=== PATIENT | female | born 2000 | race Caucasian/White ===

== ENCOUNTER 2023-03-17 11:00 | Outpatient (RCR) | payer OTHER, SELFPAY ==
[2023-03-17 12:17] LABS: Basophils Percent Auto 0.1 % (0.2-1.2); Eosinophils Absolute Auto 0.1 K/mm3 (0-0.3); Eosinophils Percent Auto 0.4 % (0-4.4); Hematocrit 32.7 % (37.0-47.0); Hemoglobin 10.1 g/dL (12.0-15.0); Immature Granulocyte Absolute 0.09 K/mm3 (0.00-0.031); Immature Granulocyte Percent A 0.7 % (0-0.5); Lymphocytes Absolute Auto 1.34 K/mm3 (0.9-3.2); Mean Corpuscular HGB Conc 30.9 g/dl (32-36); Mean Corpuscular Hemoglobin 25.1 pg (26-34); Mean Corpuscular Volume 81.3 fl (80-100); Mean Platelet Volume 10.6 fl (7.4-10.4); Monocytes Absolute Auto 0.5 K/mm3 (0.1-0.6); Monocytes Percent Auto 3.7 % (2.6-8.5); Neutrophils Absolute Auto 11.4 K/mm3 (1.3-6.7); Neutrophils Percent Auto 85.1 % (45.5-73.1); Platelet Count Result 361 k/mm3 (150-375); Red Blood Count 4.02 M/mm3 (4.2-5.4); Red Cell Distribution Width 14.4 % (11.5-14.5); White Blood Count 13.5 K/mm3 (4.5-10.0)
[2023-03-17 12:27] LABS: Glucose 1 Hour PP 50gm Dose 157 mg/dL
[2023-03-17 13:08] LABS: HIV 1/2 Ab P24 Ag Result Negative (Negative)
[2023-03-18] MEDS: RHO(D) IMMUNE GLOBULIN 300 MCG/2 ML SYRINGE IM (14:20)
== END 2023-06-15 23:59 | disposition home or self-care (01) ==
LOC: ANHLAB 11:00
PROVIDERS: PCP Family Medicine; Visit Provider Obstetrics & Gynecology
DX: Z11.4 Encounter for screening for human immunodeficiency virus [HIV] (principal); Z29.13 Encounter for prophylactic Rho(D) immune globulin; O36.0190 Maternal care for anti-D [Rh] antibodies, unspecified trimester, not applicable or unspecified; Z3A.00 Weeks of gestation of pregnancy not specified
CPT/HCPCS: 36415; 82947; 85025; 85461; 86703; 86850; 86900; 86901; 90384; 96372; G0432; J2790

== ENCOUNTER 2023-05-12 17:17 | Observation (INO) | payer OTHER, SELFPAY ==
[2023-05-12] VITALS (9 sets, daily range): BP systolic 130–149; BP diastolic 80–94; PULSE 64–82; BMI 33.6
--- NOTE | ~2023-05-12 | US_ITS ---
EXAMINATION: US OB limited DATE: 05/12/2023 18:36 INDICATION: Placental evaluation during third trimester , abdominal trauma TECHNIQUE: Real-time ultrasound of the pelvis was performed. The interpreting radiologist was not pre sent for the study. COMPARISON: None. FINDINGS: There is a single living fetus in vertex presentation. The placenta is to the maternal righ t, 7.9 cm from the internal cervical os, and normal in appearance. cardiac activity and m ovement are noted. heart rate is 129 beats per minute (bpm). The amniotic fluid index is 5.8 cm which is low (normal range: 7.5 cm to 24.4 cm). IMPRESSION: 1. Single living fetus in vertex presentation. 2. Grossly normal placenta without evidence of previa or abruption. However, acute hemorrhage can be isoechoic to the placenta. Recommend continued clinical followup. 3. Oligohydramnios. Reviewed, dictated and finalized at location F. IMPRESSION: 1. Single living fetus in vertex presentation. 2. Grossly normal placenta without evidence of previa or abruption. However, a cute hemorrhage can be isoechoic to the placenta. Recommend continued clinical followup. 3. Oligohydramnios.
--- NOTE | 2023-05-12 17:40 | OBADM ---
This patient, Lalitha Rae, admitted to the OB room OB Post 112 for observation. Patient/family oriented to hospital policies and general routines including ID bracelet, bed and alarms, visiting hours, pain management, procedures, bathroom and other care routines, personal items, smoking policy, room service/diet, and visiting hours. Patient/Family are encouraged to report perceived risks to care and to ask questions if they do not understand what they are told or what they should do.
--- NOTE | 2023-05-19 09:33 | PM.OBTRLD ---
OB - Triage/Final Diagnosis Visit Information Comments/Additional reasons for admission: I have assessed the risk for this patient, Lalitha Rae, and determined that she would benefit from observation care. Evaluation Laboratory results: Laboratory Tests 05/12/23 18:01 Blood Type A Negative Antibody Screen Positive Antibody Identification Passive Due to RH Imm Glob Antigen Identification TNP EVIN, IgG Interpret Not Performed EVIN, Poly Interpret Negative EVIN, Complement Interp Not Performed Screen Negative Baby's Blood Type Not Reportable Baby's EVIN Not Reportable KB Hemoglobin Negative Doses of RhIg Required 1 Final Diagnosis (1) Status post fall: Code(s): Z91.81 - History of falling Status: Acute
== END 2023-05-12 21:26 | disposition home or self-care (01) ==
PROVIDERS: Admitting Provider Obstetrics & Gynecology; PCP Family Medicine; Visit Provider Obstetrics & Gynecology
DX: Z04.3 Encounter for examination and observation following other accident (principal)
CPT/HCPCS: 36415; 76815; 85460; 85461; 86850; 86880; 86900; 86901; 86902; G0378; G0379

== ENCOUNTER 2023-05-13 15:35 | Outpatient (RCR) | payer OTHER, SELFPAY ==
[2023-04-06 14:46] VITALS: BP 123/75; PULSE 92
[2023-04-06 16:34] VITALS: BP 123/75; PULSE 116
[2023-04-09 08:33] VITALS: BP 127/76; PULSE 78
[2023-04-13 14:11] VITALS: BP 123/73; PULSE 80
[2023-04-16 09:12] VITALS: BP 120/72; PULSE 75
[2023-04-20 15:26] VITALS: BP 118/78; PULSE 75
[2023-04-23 09:09] VITALS: BP 128/87; PULSE 79
[2023-04-27 15:05] VITALS: BP 119/76; PULSE 70
[2023-04-30 09:01] VITALS: BP 121/73; PULSE 85
[2023-05-04 11:31] VITALS: BP 140/81; PULSE 68
[2023-05-04 11:46] VITALS: BP 137/87; PULSE 78
[2023-05-04 12:10] VITALS: BP 137/87; PULSE 78
[2023-05-11 12:15] VITALS: BP 128/86; PULSE 77
--- NOTE | ~2023-05-13 | US_ITS ---
EXAMINATION: US OB BPP wo non-stress DATE: 05/04/2023 12:39 INDICATION: Intrauterine growth retardation TECHNIQUE: Real-time pelvic ultrasound was performed. The interpreting radiologist was not present fo r the study. COMPARISON: 04/27/2023 FINDINGS: There is a single living fetus in vertex presentation. The placenta is anterior. heart rate is 135 beats per minute (bpm). Biophysical profile performed by the technologist: breathing (30 sec sustained breathing in 30 minutes): 2 out of 2 movement (3 gross body movements in 30 minutes): 2 out of 2 tone (one episode of wpnsyix-tdkvulhbi-zyxionk limb movement): 2 out of 2 Amniotic fluid pocket (2 cm): 2 out of 2 Total score: 8 out of 8 IMPRESSION: 1. Single living fetus in vertex presentation with heart rate of 135 bpm. 2. Biophysical profile 8 out of 8. Reviewed, dictated and finalized at location A.
--- NOTE | ~2023-05-13 | US_ITS ---
EXAMINATION: US OB BPP wo non-stress DATE: 04/20/2023 15:49 INDICATION: Gestational diabetes, third trimester TECHNIQUE: Real-time pelvic ultrasound was performed. The interpreting radiologist was not present fo r the study. COMPARISON: None. FINDINGS: There is a single living fetus in vertex presentation. The placenta is anterior. heart rate is 157 beats per minute (bpm). The amniotic fluid index is 10.3 cm which is normal (normal range: 8.1 cm to 24.8 cm). The cervical length measures 3.3 cm. Biophysical profile performed by the technologist: breathing (30 sec sustained breathing in 30 minutes): 2 out of 2 movement (3 gross body movements in 30 minutes): 2 out of 2 tone (one episode of hugrmbz-lbkqtslvq-gdvvera limb movement): 2 out of 2 Amniotic fluid pocket (2 cm): 2 out of 2 Total score: 8 out of 8 IMPRESSION: 1. Single living fetus in vertex presentation. 2. Biophysical profile 8 out of 8. Reviewed, dictated and finalized at location B.
--- NOTE | ~2023-05-13 | US_ITS ---
EXAMINATION: US OB follow up w BPP DATE: 04/27/2023 15:04 INDICATION: Evaluate EFW and growth percentage, evaluate BPP. Hypertension, DPM. TECHNIQUE: Real-time ultrasound of the pelvis was performed. COMPARISON: 04/20/2023, 04/06/2023. FINDINGS: There is a single living fetus in vertex presentation, longitudinal lie. The placenta is anterior. F etal heart rate is 136 bpm. The amniotic fluid index is 10.4 cm, which is normal (5th to 95th percent ile is 8.3 to 24.5 cm). The following biometric data were obtained: Biparietal diameter (BPD): 8.15 cm; head circumference (HC): 29.21 cm; abdominal circumference (AC): 30.25 cm; femur length (FL): 6.65 cm. These measurements are concordant. Estimated weight is 2293 g +/- 344.01 g, which correlates with the 10.9 percentile when 05/28/20 is used as estimated date of delivery. As single measurements, these parameters are each equal to the following estimated gestational ages w ith ranges of +/- 2 standard deviations: BPD: 32 weeks 5 days +/- 3 weeks 1 days. HC: 32 weeks 1 days +/- 3 weeks 0 days. AC: 34 weeks 1 days +/- 3 weeks 0 days. FL: 34 weeks 2 days +/- 3 weeks 0 days. estimated gestational age based solely on measurements from this exam is 33 weeks 2 days +/- 2 weeks 2 days. Biophysical profile performed by the technologist: breathing (30 sec sustained breathing in 30 minutes): 2 out of 2. movement (3 gross body movements in 30 minutes: 2 out of 2. tone (one episode of ikzzjco-vhpnuhqow-ncravvw limb movement): 2 out of 2. Amniotic fluid pocket (2 cm): 2 out of 2. Total score: 8 out of 8. IMPRESSION: Single living fetus in vertex presentation. Biophysical profile 8 out of 8. EFW 2293 g, corresponding to the 10.9th percentile when 05/28/2023 is used as the estimated date of de livery. Reviewed, dictated and finalized at location K. IMPRESSION: Single living fetus in vertex presentation. Biophysical profile 8 out of 8. EFW 2293 g, corresponding to the 10.9th percentile when 05/28/2023 is used as th e estimated date of delivery.
--- NOTE | ~2023-05-13 | US_ITS ---
EXAMINATION: US OB limited DATE: 05/13/2023 16:53 INDICATION: Amniotic fluid index assessment during third trimester TECHNIQUE: Real-time ultrasound of the pelvis was performed. The interpreting radiologist was not pre sent for the study. COMPARISON: 05/12/2023 FINDINGS: There is a single living fetus in vertex presentation. The placenta is anterior. card iac activity and movement are noted. heart rate is 148 beats per minute (bpm). The amniot ic fluid index is 4.6 cm which is low (normal range: 7.5 cm to 24.4 cm) . IMPRESSION: 1. Single living fetus in vertex presentation. 2. Persistent oligohydramnios. Reviewed, dictated and finalized at location F.
--- NOTE | ~2023-05-13 | US_ITS ---
EXAMINATION: US OB follow up w BPP DATE: 04/06/2023 15:23 INDICATION: Biophysical profile and growth assessment during third trimester TECHNIQUE: Real-time pelvic ultrasound was performed. The interpreting radiologist was not present fo r the study. COMPARISON: None. FINDINGS: There is a single living fetus in vertex presentation. The placenta is anterior. heart rate is 137 beats per minute (bpm). Biophysical profile performed by the technologist: breathing (30 sec sustained breathing in 30 minutes): 2 out of 2 movement (3 gross body movements in 30 minutes): 2 out of 2 tone (one episode of eoeqvpq-hzkxtoica-pblcflp limb movement): 2 out of 2 Amniotic fluid pocket (2 cm): 2 out of 2 Total score: 8 out of 8 The following biometric data were obtained: Biparietal diameter (BPD): 7.7 cm; head circumference (HC): 28.9 cm; abdominal circumference (AC): 27 .1 cm; femur length (FL): 6.3 cm. These measurements are concordant. Estimated weight is 1804 g +/- 270 g, which correlates with the 15th percentile when 05/18/2023 i s used as estimated date of delivery. As single measurements, these parameters are each equal to the following estimated gestational ages w ith ranges of +/- 2 standard deviations: BPD: 30 weeks 5 days +/- 3 weeks 1 days. HC: 31 weeks 6 days +/- 3 weeks 0 days. AC: 31 weeks 1 days +/- 3 weeks 0 days. FL: 32 weeks 4 days +/- 3 weeks 0 days. estimated gestational age based solely on measurements from this exam is 31 weeks 4 days +/- 2 weeks 1 days. IMPRESSION: 1. Single living fetus in vertex presentation. 2. Biophysical profile 8 out of 8. 3. Estimated weight is 1804 g +/- 270 g, which correlates with the 15th percentile when 3 is used as estimated date of delivery. Reviewed, dictated and finalized at location [] IMPRESSION: 1. Single living fetus in vertex presentation. 2. Biophysical profile 8 out of 8. 3. Estimated weight is 1804 g +/- 270 g, which correlates with the 15th p ercentile when 05/18/2023 is used as estimated date of delivery.
--- NOTE | ~2023-05-13 | US_ITS ---
EXAMINATION: US OB BPP wo non-stress DATE: 05/11/2023 12:09 INDICATION: Chronic hypertension. Gestational diabetes. Third trimester. TECHNIQUE: Real-time pelvic ultrasound was performed. COMPARISON: Ultrasound 05/04/2023 FINDINGS: There is a single living fetus in vertex presentation. The placenta is anterior. heart rate is 125 beats per minute (bpm). The amniotic fluid volume is subjectively . Biophysical profile performed by the technologist: breathing (30 sec sustained breathing in 30 minutes): 2 out of 2 movement (3 gross body movements in 30 minutes): 2 out of 2 tone (one episode of blsjmsa-qvhvdnbej-nlfpbhz limb movement): 2 out of 2 Amniotic fluid pocket (2 cm): 2 out of 2 Total score: 8 out of 8 IMPRESSION: 1. Single living fetus in vertex presentation. 2. Biophysical profile 8 out of 8. Reviewed, dictated and finalized at location B.
--- NOTE | ~2023-05-13 | US_ITS ---
EXAMINATION: US OB BPP wo non-stress DATE: 04/13/2023 14:07 INDICATION: Third trimester with maternal gestational diabetes. Assess biophysical profile. TECHNIQUE: Real-time pelvic ultrasound was performed. The interpreting radiologist was not present fo r the study. COMPARISON: None. FINDINGS: There is a single living fetus in vertex presentation. The placenta is anterior. heart rate is 132 beats per minute (bpm). Biophysical profile performed by the technologist: breathing (30 sec sustained breathing in 30 minutes): 2 out of 2 movement (3 gross body movements in 30 minutes): 2 out of 2 tone (one episode of cvtvqhp-ehexxgbjw-yylqvaj limb movement): 2 out of 2 Amniotic fluid pocket (2 cm): 2 out of 2 Total score: 8 out of 8 IMPRESSION: 1. Single living fetus in vertex presentation with heart rate of 132 bpm. 2. Biophysical profile 8 out of 8. Reviewed, dictated and finalized at location B.
== END 2023-05-13 17:30 | disposition short-term general hospital (02) ==
LOC: ANHOBOP 15:35
PROVIDERS: PCP Family Medicine; Visit Provider Obstetrics & Gynecology
DX: O24.419 Gestational diabetes mellitus in pregnancy, unspecified control (principal); Z3A.32 32 weeks gestation of pregnancy
CPT/HCPCS: 59025; 76815; 76816; 76819

== ENCOUNTER 2023-05-13 15:35 | Inpatient (IN) | payer OTHER, SELFPAY ==
[2023-05-13] VITALS (18 sets, daily range): BP systolic 107–162; BP diastolic 57–106; PULSE 62–96; TEMP 36.9; BMI 33.6
--- NOTE | 2023-05-13 18:21 | WPDANESEPP ---
Anes - Eval Pre Procedure Procedure: labor epidural Date/Time: 05/13/23 18:21 Pre Op Diagnosis: Induction of Labor Patient Data Age: 22 Gender: F Height: Weight: Last Vital Signs Pulse 84 05/13/23 18:16 BP 132/86 05/13/23 18:16 Allergies Allergy/AdvReac Type Severity Reaction Status Date / Time No Known Allergies Allergy Verified 05/04/23 13:45 Home Medications Medication Instructions Recorded Confirmed Type vitamin-ferrous fumarate 1 cap PO DAILY 11/16/22 05/12/23 History 65 mg iron-folic acid 1 mg capsule aspirin 81 mg tablet,delayed 81 mg PO DAILY 12/01/22 05/12/23 History release (Adult Low Dose Aspirin) labetalol 100 mg tablet 100 mg PO Q12H #60 tabs 01/13/23 05/12/23 Rx ferrous sulfate 324 mg (65 mg 324 mg PO DAILY 04/06/23 05/12/23 History iron) tablet,delayed release Patient hx anesthesia problems: none Family hx anesthesia problems: none Results Review: All pre-operative results and documents have been reviewed as part of the pre-operative evaluation. [facility] Past Medical History Medical History Abnormal glucose tolerance in Allergies Anxiety Gestational diabetes Family History Family History Grandparent Diabetes mellitus Mother Diabetes mellitus Thyroid disorder Hypertension Sibling Depression Thyroid disorder Social History Social History Smoking status: Never smoker Tobacco type: e-cigarettes/vaping Smoking end date: 10/10/20 Additional smoking assessment comments: stopped vaping 1-2 months ago Alcohol intake: former Drinks per week: 3 Alcohol use details: Beer, wine, etc. 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
[2023-05-13 19:15] LABS: Basophils Percent Auto 0.3 % (0.2-1.2); Eosinophils Absolute Auto 0.1 K/mm3 (0-0.3); Eosinophils Percent Auto 0.5 % (0-4.4); Hematocrit 37.1 % (37.0-47.0); Hemoglobin 11.8 g/dL (12.0-15.0); Immature Granulocyte Absolute 0.07 K/mm3 (0.00-0.031); Immature Granulocyte Percent A 0.5 % (0-0.5); Lymphocytes Absolute Auto 2.01 K/mm3 (0.9-3.2); Lymphocytes Percent Auto 13.9 % (18.3-44.2); Mean Corpuscular HGB Conc 31.8 g/dl (32-36); Mean Corpuscular Hemoglobin 25.6 pg (26-34); Mean Corpuscular Volume 80.5 fl (80-100); Mean Platelet Volume 12.8 fl (7.4-10.4); Monocytes Absolute Auto 1.1 K/mm3 (0.1-0.6); Monocytes Percent Auto 7.5 % (2.6-8.5); Neutrophils Absolute Auto 11.2 K/mm3 (1.3-6.7); Neutrophils Percent Auto 77.3 % (45.5-73.1); Platelet Count Result 272 k/mm3 (150-375); Red Blood Count 4.61 M/mm3 (4.2-5.4); Red Cell Distribution Width 16.7 % (11.5-14.5); White Blood Count 14.5 K/mm3 (4.5-10.0)
[2023-05-13] MEDS: LABETALOL HCL 100 MG TABLET PO (19:25)
[2023-05-13 19:28] LABS: Atypical Lymphocytes Present; Hypochromasia 1+ (NORMAL); Platelet Estimate Adequate (Adequate); Schistocytes None Seen (NORMAL)
[2023-05-13 19:37] LABS: Alanine Aminotransferase 17 U/L (6-35); Albumin Level 3.8 g/dL (3.5-5.1); Alkaline Phosphatase 103 U/L (38-126); Anion Gap 5 mmol/L (8-16); Aspartate Amino Transferase 27 U/L (14-36); Bilirubin,Total 0.5 mg/dL (0.2-1.3); Blood Urea Nitrogen 6 mg/dL (7-17); Carbon Dioxide 21 mmol/L (22-30); Chloride 108 mmol/L (98-107); Estimated CRCL calculation 142 ml/min; Estimated Glomerular Filt Rate > 60; Glucose 95 mg/dL (65-110); Sodium 134 mmol/L (137-145)
[2023-05-13] MEDS: LACTATED RINGERS 1,000 ML 125 ML IV CONT (19:48)
[2023-05-13] MEDS: OXYTOCIN 30 UNITS/NS 500 ML 30 UNITS/500 ML BAG IV CONT (19:50)
[2023-05-14] VITALS (158 sets, daily range): BP systolic 108–168; BP diastolic 62–119; PULSE 30–135; RESP 18; TEMP 36.1–37.1; O2SAT 76–100
[2023-05-14 02:04] LABS: Glucose Point of Care 98 mg/dl (65-105)
[2023-05-14 02:04] LABS: Glucose Point of Care 87 mg/dl (65-105)
[2023-05-14] MEDS: LACTATED RINGERS 1,000 ML 125 ML IV CONT ×2 (03:32→08:05)
[2023-05-14 03:38] LABS: Glucose Point of Care 88 mg/dl (65-105)
[2023-05-14] MEDS: fentaNYL CITRATE INJ (*CRX) 100 MCG/2 ML VIAL IV PUSH ×3 (05:02→08:14)
[2023-05-14 06:41] LABS: Rapid Plasma Reagin Non-Reactive (NonReactive)
[2023-05-14 07:02] LABS: Glucose Point of Care 82 mg/dl (65-105)
[2023-05-14] MEDS: LABETALOL HCL 100 MG TABLET PO ×2 (09:48→21:30)
--- NOTE | 2023-05-14 09:56 | PM.IMHP ---
H&P: HPI History of Present Illness Date/Time: 05/14/23 09:56 Chief Complaint: Decreased movement Narrative: The patient is a 22-year-old 1 at 37 weeks followed for chronic hypertension and recent diagnosis of oligohydramnios. Repeat ODALYS was 4.6. It was recommended that the patient stay for medical induction of labor. Patient voiced understanding and agreed to proceed. Attempts was infusing through the night and the patient is now 4cm and comfortable with her epidural. Artificial rupture of membranes with clear fluid is noted. heart tones are category I. [facility] Past Medical History Medical History (Updated 05/14/23 @ 10:01 by Alaina Denise MD) Allergies Anxiety Chronic hypertension Gestational diabetes Diet controlled Family History Family History Grandparent Diabetes mellitus Mother Diabetes mellitus Thyroid disorder Hypertension Sibling Depression Thyroid disorder Social History Social History Smoking status: Never smoker Tobacco type: e-cigarettes/vaping Second hand tobacco smoke exposure: No Smoking end date: 10/10/20 Additional smoking assessment comments: stopped vaping 1-2 months ago Alcohol intake: former Drinks per week: 3 Alcohol use details: Beer, wine, etc. 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 Gender identity (if verbalized by the patient): Female Sexual Orientation (if Verbalized by the Patient): Straight or Heterosexual Spiritual care concerns: No Meds Home Medications and Allergies Home Medications Medication Instructions Recorded Confirmed Type vitamin-ferrous fumarate 1 cap PO DAILY 11/16/22 05/12/23 History 65 mg iron-folic acid 1 mg capsule aspirin 81 mg tablet,delayed 81 mg PO DAILY 12/01/22 05/12/23 History release (Adult Low Dose Aspirin) labetalol 100 mg tablet 100 mg PO Q12H #60 tabs 01/13/23 05/12/23 Rx ferrous sulfate 324 mg (65 mg 324 mg PO DAILY 04/06/23 05/12/23 History iron) tablet,delayed release Allergies Allergy/AdvReac Type Severity Reaction Status Date / Time No Known Allergies Allergy Verified 05/04/23 13:45 Vital Signs Vital Signs - 24 hr 05/13/23 17:31 05/13/23 17:46 05/13/23 18:01 Temperature Pulse Rate 95 96 81 Blood Pressure 156/97 H 139/93 H 137/81 Pulse Oximetry Oxygen Delivery 05/13/23 18:16 05/13/23 20:54 05/13/23 21:01 Temperature Pulse Rate 84 85 67 Blood Pressure 132/86 162/106 H 130/83 Pulse Oximetry Oxygen Delivery 05/13/23 21:16 05/13/23 21:31 05/13/23 21:46 Temperature Pulse Rate 70 77 73 Blood Pressure 127/80 129/75 107/81 Pulse Oximetry Oxygen Delivery 05/13/23 22:01 05/13/23 22:16 05/13/23 22:31 Temperature Pulse Rate 73 72 74 Blood Pressure 114/67 110/57 L 108/66 Pulse Oximetry Oxygen Delivery 05/13/23 22:46 05/13/23 23:01 05/13/23 23:16 Temperature Pulse Rate 75 67 62 Blood Pressure 109/68 120/79 125/78 Pulse Oximetry Oxygen Delivery 05/13/23 23:31 05/13/23 23:46 05/14/23 00:01 Temperature Pulse Rate 70 69 71 Blood Pressure 128/89 124/86 124/87 Pulse Oximetry Oxygen Delivery 05/14/23 00:16 05/14/23 00:31 05/14/23 00:46 Temperature Pulse Rate 73 80 73 Blood Pressure 134/95 H 124/85 114/86
[2023-05-14] MEDS: SODIUM CHLORIDE 0.9% IV 300 ML 600 ML I-UTERINE (10:41)
[2023-05-14 10:57] LABS: Glucose Point of Care 80 mg/dl (65-105)
--- NOTE | 2023-05-14 13:27 | PM.OBDSVD ---
DS: Admitting Diagnosis Discharge Date 05/16/23 Admitting Diagnosis IUP 37 wks CHTN oligohydramnios GDMA1 DS: Discharge Diagnosis Discharge Diagnosis (1) Oligohydramnios: Code(s): O41.00X0 - Oligohydramnios, unspecified trimester, not applicable or unspecified Status: Acute (2) 37 weeks gestation of : Code(s): Z3A.37 - 37 weeks gestation of Status: Acute (3) Chronic hypertension: Code(s): I10 - Essential (primary) hypertension Status: Acute (4) Gestational diabetes: Code(s): O24.419 - Gestational diabetes mellitus in , unspecified control Status: Acute (5) (normal spontaneous vaginal delivery): Code(s): O80 - Encounter for full-term uncomplicated delivery Status: Acute OB - DS: Summary OB Procedures : NST, Ultrasound and Other (CHTN management) OB Procedures Intrapartum: Spontaneous Vag Delivery OB Procedures: : None Peripartum Data Delivery Method: Natural Vaginal Laceration Description: Vaginal - 2nd Degree complications: none Status at Discharge Functional status at discharge: independent ambulation Overall status at discharge: patient is progressing back to baseline Time Spent with Patient Time attestation: Total time spent providing and/or coordinating discharge services: DS: Data Data Completed and Pending Labs on day of discharge: Labs from last 24 hours 05/14/23 05/14/23 05/14/23 10:53 06:56 03:31 WBC RBC Hgb Hct MCV MCH MCHC RDW Plt Count MPV Immature Gran % (Auto) Neut % (Auto) Lymph % (Auto) [place] % (Auto) Eos % (Auto) Baso % (Auto) Lymph # (Auto) [place] # (Auto) Eos # (Auto) Baso # (Auto) Abs Immat Gran (auto) Absolute Neuts (auto) Absolute Nucleated RBC Nucleated RBC % Atypical Lymphocytes Platelet Estimate Hypochromasia Schistocytes Sodium Potassium Chloride Carbon Dioxide Anion Gap BUN Creatinine Estim Creat Clear Calc Estimated GFR Glucose POC Capillary Glucose 80 82 88 Calcium Total Bilirubin AST ALT Alkaline Phosphatase Total Protein Albumin RPR 05/14/23 05/13/23 05/13/23 00:00 19:44 19:05 WBC 14.5 H RBC 4.61 Hgb 11.8 L Hct 37.1 MCV 80.5 MCH 25.6 L MCHC 31.8 L RDW 16.7 H Plt Count 272 MPV 12.8 H Immature Gran % (Auto) 0.5 Neut % (Auto) 77.3 H Lymph % (Auto) 13.9 L [place] % (Auto) 7.5 Eos % (Auto) 0.5 Baso % (Auto) 0.3 Lymph # (Auto) 2.01 [place] # (Auto) 1.1 H Eos # (Auto) 0.1 Baso # (Auto) 0.0 Abs Immat Gran (auto) 0.07 H Absolute Neuts (auto) 11.2 H Absolute Nucleated RBC 0.0 Nucleated RBC % 0.0 Atypical Lymphocytes Present Platelet Estimate Adequate Hypochromasia 1+ Schistocytes None seen Sodium 134 L Potassium 4.0 Chloride 108 H Carbon Dioxide 21 L Anion Gap 5 L BUN 6 L Creatinine 0.60 L Estim Creat Clear Calc 142 Estimated GFR > 60 Glucose 95 POC Capillary Glucose 87 98 Calcium 9.0 Total Bilirubin 0.5 AST 27 ALT 17 Alkaline Phosphatase 103 Total Protein 7.0 Albumin 3.8 RPR Non-reactive Discharge Plan Discharge Attending physician on discharge: Anotine Mae Discharging Clinician: Nancy Garcia Anticipated Discharge Date/Time: 05/16/23 14:00 Patient Disposition: Home, Self-Care Activity: may shower and may drive after 2 weeks Diet: regular Patient Instructions: Antibiotic Form Stand Alone Forms: General Discharge Information Follow-up/Referrals: Antoine Mae MD [Physician] - Call for Appointment Discharge Medications: New acetaminophen [Mapap (acetaminophen)] 325 mg Tablet 650 mg PO Q6H PRN (Reason: Mild Pain (1-3) Or Headache) Qty: 60 0RF docusate sodium 100 mg Capsule
--- NOTE | 2023-05-14 13:29 | P.PCNOB_ITS ---
OB - Delivery Note Procedure Delivery date: 05/14/23 Procedure: Events: Chronic Hypertension, Gestational Diabetes (GDMA1) and Oligohydramnios Induction method: AROM and Per Pitocin Protocol Delivery monitor: External FHT and Internal Uterine Route of delivery: Laceration Description: Vaginal Delivery repair: vicryl (3-0) Specimen: Yes (placenta-small appearing) Quantitative Blood Loss (ml): 100 Anesthesia type: Epidural Disposition: Floor [place] Baby Date of : 05/14/23 Weeks of gestation at delivery: 37 Infant gender: Female presentation: vertex position: Right Occiput Anterior Placenta delivery description: Spontaneous Cord Vessel Description: 3 Vessels and Delayed Cord Clamping score one minute: 8 score five minutes: 8
[2023-05-14] MEDS: OXYTOCIN 30 UNITS/NS 500 ML 30 UNITS/500 ML BAG 125 UNITS IV CONT (13:30)
--- NOTE | 2023-05-14 16:02 | OBPPTRN ---
Patient transferred to post room # 286 via wheelchair accompanied by fob and and taken to room awake and alert. Support person present No barriers to learning identified at this time. PT oriented to unit, room, information board, rooming in, admission packet and security measures. Pt introductions made and plan of care discussed per one to one discussion , mom baby care guide and demonstrations this shift. Patient verbalizes understanding.
[2023-05-14] MEDS: WITCH HAZEL 40 PADS 1 PAD TOPICAL (16:43)
[2023-05-14] MEDS: ACETAMINOPHEN 325 MG TABLET 650 MG PO (16:43)
[2023-05-14] MEDS: BENZOCAINE 20% AER SPR (*SP) 56 GM CAN 1 SPRAY TOPICAL (16:43)
[2023-05-14] MEDS: DOCUSATE SODIUM 100 MG CAPSULE PO (16:44)
[2023-05-14] MEDS: IBUPROFEN 600 MG TABLET PO (16:44)
[2023-05-14] MEDS: POLYSACCHARIDE IRON COMPLEX 150 MG CAPSULE PO (16:46)
[2023-05-15 04:00] VITALS: BP 122/82; PULSE 92; RESP 18; TEMP 36.9; O2SAT 100
[2023-05-15] MEDS: IBUPROFEN 600 MG TABLET PO ×3 (05:10→17:37)
[2023-05-15] MEDS: ACETAMINOPHEN 325 MG TABLET 650 MG PO ×3 (05:10→17:36)
[2023-05-15 05:18] LABS: Hematocrit 31.7 % (37.0-47.0); Hemoglobin 9.3 g/dL (12.0-15.0)
--- NOTE | 2023-05-15 07:30 | PC.NURSE ---
PT introductions made and plan of care discussed per post , pain management, breast feeding, daily care activities. PT and fob both recipients of such instructions and no barriers to learning identified at this time. PT received such instructions per one to one discussion, mom baby care guide and demonstrations. PT verbalized understanding of such care.
[2023-05-15 08:00] VITALS: BP 132/88; PULSE 100; RESP 20; TEMP 35.9; O2SAT 100
--- NOTE | 2023-05-15 08:06 | P.PNOB_ITS ---
OB - PN: Subj Subjective Date/time seen: 05/15/23 08:06 Patient comments: no complaints, pain well controlled and other (No PIH sx) [place] baby status: doing well OB - PN: Obj Data Labs 05/15/23 05:13 05/13/23 19:05 Labs: Laboratory Results - last 24 hr 05/14/23 05/15/23 10:53 05:13 Hgb 9.3 L Hct 31.7 L POC Capillary Glucose 80 OB - PN A/P Assessment and Plan (1) Chronic hypertension: Code(s): I10 - Essential (primary) hypertension Status: Acute Assessment and Plan: BP much improved since delivery Plan day: 1 Plan: routine care Time Spent With Patient Time: Total time spent is greater than 50% in coordination of care (as documented) at patient's floor/unit and/or counseling patient: Exam : Bimanual exam- vagina & uterus: other (Uterus firm, nt @U)
--- NOTE | 2023-05-15 08:42 | WPDANLDPN2 ---
Anes-Prog Note L&D Date/Time: 05/15/23 08:42 Comfortable throughout: labor and delivery Neuraxial method: epidural Epidural/Spinal procedure site: clean & non-tender Neuro status: Neuro function grossly intact. Cardiovascular status: normal Respiratory status: normal Airway patency: baseline Mental status: baseline Post-Op hydration status: normal Vital Signs: Last Vital Signs Temp 36.9 C 05/15/23 04:00 Pulse 92 05/15/23 04:00 Resp 18 05/15/23 04:00 BP 122/82 05/15/23 04:00 Pulse Ox 100 05/15/23 04:00 O2 Del Method Room Air 05/14/23 16:15 Pain score (VAS): 2/10 I/O: Intake & Output 05/14/23 05/15/23 05/15/23 23:59 07:59 15:59 Intake Total 500 Balance 500 Post-procedural complaints: none Patient feedback: Patient satisfied with anesthetic care.
[2023-05-15] MEDS: MULTIVIT/MIN/PREN/FOL AC/IRON TABLET 1 TAB PO (12:02)
[2023-05-15] MEDS: DOCUSATE SODIUM 100 MG CAPSULE PO ×2 (12:02→17:37)
[2023-05-15 12:04] VITALS: PULSE 100
[2023-05-15] MEDS: LABETALOL HCL 100 MG TABLET PO (12:04)
[2023-05-15] MEDS: POLYSACCHARIDE IRON COMPLEX 150 MG CAPSULE PO ×2 (12:06→17:37)
[2023-05-15] MEDS: TETANUS,DIPHTHERIA,AC PERTUSSIS ADULT (0.5 ML) BOOSTRIX IM (17:35)
[2023-05-15 20:48] VITALS: BP 123/82; PULSE 78; RESP 18; TEMP 36.9; O2SAT 98
[2023-05-16 01:00] VITALS: PULSE 78
[2023-05-16] MEDS: LABETALOL HCL 100 MG TABLET PO ×2 (01:00→10:09)
[2023-05-16 07:40] VITALS: BP 120/73; PULSE 74; RESP 16; TEMP 36.7; O2SAT 99
[2023-05-16 08:00] VITALS: PULSE 74; RESP 16; O2SAT 99
[2023-05-16] MEDS: DOCUSATE SODIUM 100 MG CAPSULE PO (08:44)
[2023-05-16] MEDS: MULTIVIT/MIN/PREN/FOL AC/IRON TABLET 1 TAB PO (08:44)
[2023-05-16] MEDS: POLYSACCHARIDE IRON COMPLEX 150 MG CAPSULE PO (08:44)
--- NOTE | 2023-05-16 09:37 | P.PNOB_ITS ---
OB - PN: Subj Subjective Date/time seen: 05/16/23 09:37 Narrative: PPD#2 Lalitha reports doing well today. 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 Her pain is controlled. She is tolerating regular diet, voiding, passing gas, and ambulating without issues. She is breast feeding. OB - PN: Obj Data Labs 05/15/23 05:13 05/13/23 19:05 OB - PN A/P Assessment and Plan (1) (normal spontaneous vaginal delivery): Code(s): O80 - Encounter for full-term uncomplicated delivery Status: Acute (2) Oligohydramnios: Code(s): O41.00X0 - Oligohydramnios, unspecified trimester, not applicable or unspecified Status: Acute Plan day: 2 Plan: routine care and discharge home Comments: - Pelvic rest; take meds as prescribed - ER return precautions: fever, n/v/abd pain, bleeding, HTN Time Spent With Patient Time: Total time spent is greater than 50% in coordination of care (as documented) at patient's floor/unit and/or counseling patient: Review of Systems Constitutional: Constitutional: Denies chills, Denies fever(s) and Denies headache(s) Eyes: Eyes: Denies change in vision ENT: Denies dizziness and Denies headache(s) Cardiovascular: Cardiovascular: Denies chest pain, Denies palpitations and Denies dyspnea Respiratory: Respiratory: Denies cough and Denies dyspnea Gastrointestinal: Gastrointestinal: Denies nausea and Denies vomiting Neurologic: Denies dizziness and Denies headache(s) Endocrine: Endocrine: Denies palpitations Exam Const: General: cooperative, comfortable, no acute distress and obese Orientation/consciousness: patient oriented x3 Resp: Effort & Inspection: normal respiratory effort Auscultation: clear to auscultation bilaterally Cardio: Rate: regular rate GI: Inspection: non-distended GI Palp: No abdominal tenderness and Yes Soft to palpation Auscultation: normal bowel sounds : Other: fundus firm Skin: General skin exam: normal color Neuro: General: patient oriented x3 Extrem: General: normal to inspection Psych: Appearance: grossly normal Affect: normal affect Attitude: cooperative
[2023-05-16 10:09] VITALS: PULSE 74
--- NOTE | 2023-05-16 12:46 | PC.NURSE ---
[id number] Introductions were made, then consulted with patient to assess needs related to . Mother led the conversation with her?plans to feed?her infant, the?experience so far and the feeding plan of . Resources provided for inpatient and outpatient services with the feeding sheet, mom/baby guide and name written on the white board. Mother voiced understanding of information and parents requested assistance as it has almost been 3 hours since the start of the last feeding. Mother works well with her infant with encouragement and education. Encouraged understanding of the benefits of skin to skin (demonstrating unwrapping infant and placing upright on her chest), stimulating with massage touch, changing positions to encourage wakefulness, how to watch for early feeding cues, responsive feeding, feeding on demand (aiming for 8-12 times in 24 hours, about every 2-3 hours), milk production, hand expression, building/maintaining a milk supply, duration/frequency of feeding and signs of adequate intake/output. Reviewed positioning and ear, shoulder, hip alignment, supporting the breast to facilitate a deep latch, asymmetrical latch (off-center), leading with the chin with a big, open, wide gape and body close to mother. latched optimally to the right breast in football position. Education given to mother of how to visualize suck/swallow ratios and listen for drinking at the breast. was unable to maintain latch. Several attempts were made where infant opened wide but would either hold the nipple in the mouth, suck a few times with and without swallowing at times, then go back to hold the nipple in the mouth. Nipple care reviewed with optimal latch and good positioning. Reviewed good handwashing when or touching the breast/nipples to prevent infection. Resources used to facilitate learning were used with the visual handouts, tool, mom and baby guide. Mother voiced understanding of skin to skin, stimulating with massage touch, responsive feedings, hand expressed colostrum, talking to infant to encourage if it has been 2 -2.5 hours since the start of the last , to call if does not latch, or if there is discomfort with . Resources provided for inpatient/outpatient with the feeding sheet and the mom/baby guide. Parents voiced understanding of information, demonstrated learning and will call if there is a request for assistance. Reported to primary RN. [id number] Breast pump provided earlier before introduction due to not maintaining the latch. Instructions given on cleaning, care, usage, that there should be no pain, pumping schedule for milk production, collection, and storage of human milk. Patient was assessed for correct placement, flange size, to pump for comfort and nipple stretching/stimulation for adequate milk production every 3 hours (8 times in 24 hours) 1-2 times at night. Mother pumped 20 mls of transitional milk for the infants next feeding so she wouldn't be stress pumping for each feeding. Father of baby was instructed with demonstration with teach back on how to use paced bottle feeding. Parents voiced understanding of the education shared along with mom and baby guide for additional resource information. Reported to the primary RN.
--- NOTE | 2023-05-16 12:54 | PC.NURSE ---
Patient viewed the discharge video Mother & Baby Care, The First Two Weeks . Patient was given the opportunity and encouraged to ask questions. Patient verbalized understanding of information shared and has been given the mother/baby guide for home reference.
[2023-05-17 09:30] VITALS: BP 123/89; PULSE 78; RESP 18; TEMP 36.9; O2SAT 99
== END 2023-05-16 13:30 | disposition home or self-care (01) | DRG 560 ==
LOC: ANHLDR 05-14 13:28 → ANHOB2 05-16 11:21 → ANHLDR 05-18 08:04 → ANHOB2 05-18 08:04
PROVIDERS: Obstetrics & Gynecology; Admitting Provider Obstetrics & Gynecology Gynecology; PCP Family Medicine; Visit Provider Obstetrics & Gynecology
DX: O41.03X0 Oligohydramnios, third trimester, not applicable or unspecified (principal); Z37.0 Single live birth; Z3A.38 38 weeks gestation of pregnancy; O10.92 Unspecified pre-existing hypertension complicating childbirth; O24.420 Gestational diabetes mellitus in childbirth, diet controlled
CPT/HCPCS: 36415; 80053; 82948; 85014; 85018; 85025; 86592; 88307; 90715; A9270; J2590; J3010; J7030; J7120

== ENCOUNTER 2023-05-19 09:17 | Outpatient (CLI) | payer OTHER, SELFPAY ==
[2023-05-19] VITALS (14 sets, daily range): BP systolic 114–154; BP diastolic 70–100; PULSE 78–94; RESP 18; TEMP 36.9
[2023-05-19 09:46] LABS: Basophils Percent Auto 0.4 % (0.2-1.2); Eosinophils Absolute Auto 0.1 K/mm3 (0-0.3); Eosinophils Percent Auto 1.6 % (0-4.4); Hematocrit 31.2 % (37.0-47.0); Hemoglobin 9.7 g/dL (12.0-15.0); Immature Granulocyte Absolute 0.03 K/mm3 (0.00-0.031); Immature Granulocyte Percent A 0.4 % (0-0.5); Lymphocytes Absolute Auto 1.33 K/mm3 (0.9-3.2); Lymphocytes Percent Auto 15.9 % (18.3-44.2); Mean Corpuscular HGB Conc 31.1 g/dl (32-36); Mean Corpuscular Hemoglobin 25.1 pg (26-34); Mean Corpuscular Volume 80.8 fl (80-100); Mean Platelet Volume 10.8 fl (7.4-10.4); Monocytes Absolute Auto 0.5 K/mm3 (0.1-0.6); Monocytes Percent Auto 5.5 % (2.6-8.5); Neutrophils Absolute Auto 6.4 K/mm3 (1.3-6.7); Neutrophils Percent Auto 76.2 % (45.5-73.1); Platelet Count Result 295 k/mm3 (150-375); Red Blood Count 3.86 M/mm3 (4.2-5.4); Red Cell Distribution Width 16.3 % (11.5-14.5); White Blood Count 8.3 K/mm3 (4.5-10.0)
[2023-05-19 09:56] LABS: Alanine Aminotransferase 33 U/L (6-35); Albumin Level 3.5 g/dL (3.5-5.1); Alkaline Phosphatase 105 U/L (38-126); Anion Gap 4 mmol/L (8-16); Aspartate Amino Transferase 32 U/L (14-36); Bilirubin,Total 0.7 mg/dL (0.2-1.3); Blood Urea Nitrogen 6 mg/dL (7-17); Carbon Dioxide 23 mmol/L (22-30); Chloride 106 mmol/L (98-107); Estimated Glomerular Filt Rate > 60; Glucose 110 mg/dL (65-110); Potassium 3.4 mmol/L (3.4-5.0); Sodium 133 mmol/L (137-145); Uric Acid 7.6 mg/dL (2.5-7.5)
--- NOTE | 2023-05-19 10:45 | PC.NURSE ---
Dr. Mae informed of pt's arrival with headache, blurred vision has resolved, but still having some light headedness. Discussed BP's. Pt has not had her Labetalol dose for this morning. Order received to increase Labetalol to 200 mg PO BID and also give Tylenol.
[2023-05-19] MEDS: LABETALOL HCL 100 MG TABLET 200 MG PO (11:01)
[2023-05-19] MEDS: ACETAMINOPHEN 500 MG TABLET 1000 MG PO (11:05)
--- NOTE | 2023-05-19 12:48 | PC.NURSE ---
Dr. Dillon informed headache is down to a 3 out of 10. BP's now 110's / 70's. OK to discharge to home on the increased dose of Labetalol 200 mg BID. To call if worsening headache or other signs of preeclampsia.
== END 2023-05-19 13:02 | disposition home or self-care (01) ==
LOC: ANHOBOP 09:20 → ANHOBPP 09:20
PROVIDERS: PCP Family Medicine; Visit Provider Obstetrics & Gynecology
DX: R42 Dizziness and giddiness (principal); R51.9 Headache, unspecified
CPT/HCPCS: 36415; 80053; 84550; 85025; 99199; A9270